=== PATIENT | male | born 1970 | race African-American/Black ===

== ENCOUNTER 2021-05-16 22:27 | Emergency (ER) | payer MEDICAID ==
[~2021-05-16] VITALS: Ht 170.2 cm; Wt 65.0 kg
[2021-05-17] MEDS ORDERED: HYDROCODONE/ACETAMINOPHEN 5/325MG TABLET PO ONE
[2021-05-17 00:08] VITALS: BP 148/72
[2021-05-17] MEDS ORDERED: TOPUD MT (03:37)
== END 2021-05-17 03:53 | disposition home or self-care (01) ==
LOC: ER 22:27
DX: T14.8XXA Other injury of unspecified body region, initial encounter (principal); M54.2 Cervicalgia; M25.522 Pain in left elbow; M54.50 Low back pain, unspecified; E11.9 Type 2 diabetes mellitus without complications; F99 Mental disorder, not otherwise specified; V03.90XA Pedestrian on foot injured in collision with car, pick-up truck or van, unspecified whether traffic or nontraffic accident, initial encounter; Y93.89 Activity, other specified; Y92.488 Other paved roadways as the place of occurrence of the external cause
CPT/HCPCS: 72100; 73080; 99284